=== PATIENT | male | born 1960 | race American Indian/Alaskan Native ===

== ENCOUNTER 2020-12-13 06:25 | Observation (INO) | payer OTHER ==
[2020-12-09 11:04] LABS: Hematocrit 48.2 % (35.5-45.6); Hemoglobin 16.7 gm/dl (11.8-15.2); Mean Corpuscular HGB Conc 35 % (32-34); Mean Corpuscular Volume 93 fl (84-94); Platelet Count 209 K/mm3 (140-440); Red Blood Count 5.16 M/mm3 (3.65-5.03); Red Cell Distribution Width 13.3 % (13.2-15.2)
--- NOTE | 2020-12-09 11:15 | Anesthesia Consultation ---
Anesthesia Consult and Med Hx Date of service: 12/13/20 - Airway Anesthetic Teeth Evaluation: Good (Missing) ROM Head & Neck: Adequate (Small mouth opening) Mental/Hyoid Distance: Adequate Mallampati Class: Class III Intubation Access Assessment: Probably Good - Pre-Operative Health Status ASA Pre-Surgery Classification: ASA2 Proposed Anesthetic Plan: General - Pulmonary Hx Smoking: Yes (1-2 CIG./DAY) Hx Asthma: No Hx Respiratory Symptoms: No (+2FS) COPD: No Hx Pneumonia: No Hx Sleep Apnea: No (LUIS PRE SCREEN LOW RISK) - Cardiovascular System Hx Hypertension: No Hx Heart Attack/AMI: No Hx Pacemaker: No Hx Internal Defibrillator: No Hx Heart Murmur: No - Central Nervous System Hx Seizures: No Hx Back Pain: No Hx Psychiatric Problems: No - Gastrointestinal Hx Gastroesophageal Reflux Disease: Yes - Endocrine Hx End Stage Renal Disease: No Hx Cirrhosis: No Hx Liver Disease: No - Hematic Hx Anemia: No Hx Sickle Cell Disease: No - Other Systems Hx Alcohol Use: Yes (OCC. BEER) Hx Substance Use: No Hx Cancer: Yes
[2020-12-09 11:27] LABS: Alanine Aminotransferase 19 units/L (7-56); Albumin 4.3 g/dL (3.9-5); BUN/Creatinine Ratio 13; Blood Urea Nitrogen 14 mg/dL (9-20); Calcium 9.1 mg/dL (8.4-10.2); Hemolysis Index 20
[~2020-12-13 06:25] MED LIST: ACETAMINOPHEN 500 MG TAB PO NR; BACTERIOSTATIC SODIUM CHLORIDE 0.9% 30 ML VIAL INFILTRATI ONE; CELECOXIB 200 MG CAP PO NR; GABAPENTIN 300 MG CAP PO NR; LACTATED RINGERS 1,000 ML IV SCH; MAGNESIUM OXIDE 400 MG TAB PO NR; MIDAZOLAM 2 MG/2 ML INJ IV NR
[2020-12-13] MEDS ORDERED: CITRIC ACID-SOD CITRATE 500 ML IV ONE (06:57)
[2020-12-13] MEDS ORDERED: THROMBIN (RECOMBINANT) 5,000 UNIT VIAL TP ONE ×2 (06:57→10:35)
[2020-12-13] MEDS ORDERED: BUPIVACAINE-EPINEPHRINE/PF 0.5%-1:200,000 (30 ML) VIAL INFILTRATI ONE ×2 (06:57→08:33)
[2020-12-13] MEDS ORDERED: ceFAZolin/STERILE WATER 2 GM/20 ML SYRINGE IV NR (07:00)
[2020-12-13] MEDS ORDERED: LIDOCAINE PF 100 MG/5 ML (CARDIAC SYRINGE) IV ONE (07:13)
[2020-12-13] MEDS ORDERED: ROCURONIUM 50 MG/5 ML INJ IV ONE ×2 (07:13→09:52)
[2020-12-13] MEDS ORDERED: fentaNYL 100 MCG/2 ML INJ ONE (07:13)
[2020-12-13] MEDS ORDERED: propofoL 200 MG/20 ML VIAL IV ONE (07:14)
--- NOTE | 2020-12-13 07:17 | Anesthesia Day of Surgery ---
Anesthesia Day of Surgery - Day of Surgery Patient Examined: Yes Patient H&P Reviewed: Yes Patient is NPO: Yes
[2020-12-13] MEDS ORDERED: METHYLENE BLUE 50 MG/10 ML AMP ONE (07:18)
[2020-12-13] MEDS ORDERED: ONDANSETRON 4 MG/2 ML INJ IV PRN ×2 (07:25→11:00)
[2020-12-13] MEDS ORDERED: HYDROmorphone 1 MG/1 ML INJ IV PRN (07:25)
[2020-12-13] MEDS ORDERED: CALCIUM CHLORIDE 1,000 MG/10 ML SYRINGE IV ONE ×2 (08:03→10:35)
[2020-12-13] MEDS ORDERED: SODIUM CHLORIDE 0.9% IRRIG SOLN 2000 ML IR ONE (08:34)
[2020-12-13] MEDS ORDERED: SODIUM CHLORIDE 0.9% IRR 1,500 ML BOTTLE IR ONE (08:34)
[2020-12-13] MEDS ORDERED: ePHEDrine SULFATE 50 MG/1 ML INJ ONE (08:59)
[2020-12-13] MEDS ORDERED: GLYCOPYRROLATE 0.4 MG/2 ML INJ ONE ×2 (08:59→10:11)
[2020-12-13] MEDS ORDERED: dexAMETHasone 20 MG/5 ML VIAL ONE (08:59)
[2020-12-13] MEDS ORDERED: METHYLENE BLUE 50 MG/10 ML AMP IV ONE (09:05)
[2020-12-13] MEDS ORDERED: HYDROmorphone 1 MG/1 ML INJ ONE (09:18)
[2020-12-13] MEDS ORDERED: ONDANSETRON 4 MG/2 ML INJ ONE (10:11)
[2020-12-13] MEDS ORDERED: NEOSTIGMINE 10MG/10 ML INJ MDV ONE (10:11)
--- NOTE | 2020-12-13 10:30 | Short Stay Summary ---
Short Stay Documentation Date of service: 12/13/20 - History H&P: obtained from office - Allergies and Medications Current Medications: Allergies No Known Allergies Allergy (Verified 12/07/20 15:11) Home Medications Medication Instructions Recorded Confirmed Last Taken Type Complete Multi Tablet 1 cap PO DAILY 12/06/20 12/13/20 12/11/20 History Active Medications Acetaminophen (Acetaminophen 500 Mg Tab) 1,000 mg PO ONCE NR Stop: 12/13/20 23:00 Last Admin: 12/13/20 06:37 Dose: 1,000 mg Documented by: Cefazolin Sodium (Cefazolin/Sterile Water 2 Gm/20 Ml Syringe) 2 gm IV PREOP NR Stop: 12/13/20 23:59 Celecoxib (Celecoxib 200 Mg Cap) 400 mg PO PREOP NR Stop: 12/13/20 22:00 Last Admin: 12/13/20 06:37 Dose: 400 mg Documented by: Gabapentin (Gabapentin 300 Mg Cap) 300 mg PO PREOP NR Stop: 12/13/20 22:00 Last Admin: 12/13/20 06:37 Dose: 300 mg Documented by: Hydromorphone HCl (Hydromorphone 1 Mg/1 Ml Inj) 0.5 mg IV Q10MIN PRN PRN Reason: Pain , Severe (7-10) Stop: 12/13/20 23:00 Lactated Ringer's (Lactated Ringers) 1,000 mls @ 125 mls/hr IV DIRECT YANCY Last Admin: 12/13/20 06:50 Dose: 125 mls/hr Documented by: Magnesium Oxide (Magnesium Oxide 400 Mg Tab) 400 mg PO ONCE NR Stop: 12/13/20 22:00 Last Admin: 12/13/20 06:37 Dose: 400 mg Documented by: Midazolam HCl (Midazolam 2 Mg/2 Ml Inj) 2 mg IV PREOP NR Stop: 12/13/20 23:59 Last Admin: 12/13/20 06:52 Dose: 2 mg Documented by: Ondansetron HCl (Ondansetron 4 Mg/2 Ml Inj) 4 mg IV ONCE PRN PRN Reason: Nausea And Vomiting Stop: 12/13/20 23:00 - Brief post op/procedure progress note Date of procedure: 12/13/20 Pre-op diagnosis: prostate ca Post-op diagnosis: same Procedure: robotic prostatectomy Anesthesia: GETA Surgeon: STEPHANIE ZAFAR Estimated blood loss: other (400cc) Pathology: list (prostate) Specimen disposition: to lab Condition: stable - Hospital course Hospital course: pt has scripts post op info on chart dc dinesh done william--blue urine fro methylene blure intra op home with william - Disposition Condition at discharge: Stable Short Stay Discharge Plan Follow up with: [facility] [Primary Care Provider] - 7 Days
[2020-12-13] MEDS ORDERED: NALOXONE 0.4 MG/1 ML INJ IV PRN (10:32)
[2020-12-13] MEDS ORDERED: HYDROcodone/ACETAMINOPHEN 5-325 MG TAB PO PRN (10:32)
[2020-12-13] MEDS ORDERED: CITRIC ACID-SOD CITRATE SOLN 500 ML IV SOLN IV ONE (10:34)
--- NOTE | 2020-12-13 11:07 | Operative Report ---
PREOPERATIVE DIAGNOSIS: Prostate cancer, [place] 4+3. POSTOPERATIVE DIAGNOSIS: Prostate cancer, [place] 4+3. PROCEDURES PERFORMED: Robotic-assisted laparoscopic prostatectomy, bladder neck suspension. SURGEON: Javier Figueredo MD ANESTHESIA: General. FILLER SHREDDING MACHINE LOADER: Ирина Reyes. ESTIMATED BLOOD LOSS: 400 mL. FLUIDS: Crystalloid 250 mL, Cell Saver. DRAINS: Aleks-Zimmer drain x 1. COMPLICATIONS: No complications. INDICATIONS: This 60-year-old gentleman was referred by the [facility] for treatment for prostate cancer. He had a [place] 3+7 to a 13 cores, PSA of 29. CT bone scan negative. He was referred by Dr. Rivera, discussed options. The patient agreed to proceed with surgical intervention. Risks, benefits, and complications were explained. DESCRIPTION OF PROCEDURE: The patient was taken to the operative suite, placed in a supine position. After adequate general anesthesia, placed in a modified dorsal lithotomy position, prepped and draped in a sterile fashion. Vidales catheter was placed on the operative field. 1 cm supraumbilical incision was made with the Bovie. Towel clips were placed and anterior traction applied. Veress needle was inserted without difficulty. Drop test negative. Opening pressure 3 cm of water. Insufflation of the abdomen to 15 cm of water was performed without difficulty. A 15 cm cephalad at the pubic symphysis was marked 9 cm lateral and additional 9 cm lateral was marked for the 8 mm robotic ports on the left. A robotic port on the right helper port, a 10 mm helper port on the right and a 5 mm helper port was placed. After the 0-degree lens was used to place in the midline incision. The rest of the ports were placed under direct vision. No signs of metastasis. No intra-abdominal injury could be appreciated. The patient was placed in an exaggerated Trendelenburg position. Attention was taken to the posterior aspect of the prostate lateral arch, the second arch was scored exposing the seminal vesicles and vas deferens. This was dissected out and then dissection to the apex of the prostate could be appreciated. Next, attention was taken to the anterior abdominal wall, which was scored lateral to the lateral umbilical ligament and then across the midline to allow bladder flap. The dorsal vein complex was dissected out and controlled with a 60 mm vascular stapler. The endopelvic fascia was opened bilaterally. Manipulation of the Vidales was able to identify the bladder neck, which was scored anteriorly. Vidales catheter was deflated, pulled out and anterior traction was applied. Posterior bladder neck was dissected free and methylene blue was administered intravenously to help identify the ureteral orifices bilaterally. Seminal vesicles and vas deferens was pulled up anteriorly. Lateral pedicles were exposed and controlled with a 60 mm vascular stapler bilaterally. Dissection to the posterior aspect of the prostate was performed and it was put in the EndoCatch bag. Copious irrigation was performed. Adequate hemostasis achieved. The rectum was uninjured. Bladder neck was reconstructed to allow insertion of 18-Georgian Vidales catheter. Reconstruction at the 7 o'clock and 5 o'clock positions using 2-0 Vicryl in an interrupted fashion. Double armed V-Loc was placed at the 6 o'clock position of the bladder neck and corresponding aspect of the urethra, running stitch bilaterally was placed followed by a new 18-Georgian Vidales catheter. It was inflated, irrigated, the anastomotic stitch was cinched down. No clot, no leak. Bladder neck suspension was performed using the V-Loc stitch which was placed in the pubic rami bilaterally. Jackson were removed bilaterally. Platelet-rich plasma was injected at the anastomosis as well as platelet poor plasma and a platelet membrane. Aleks-Zimmer drain was brought out through a separate incision on the left side using the 8 mm port tied and secured into the skin with 2-0 silk in an interrupted fashion. The patient was placed in the supine position. The robotic cart was undocked. The ports were removed without difficulty. The supraumbilical incision was extended slightly to allow removal of the prostate. This incision was then closed with #1 Vicryl in a [id number] fashion. The skin was closed with 3-0 Vicryl in an interrupted fashion. Vidales catheter sideport was folded over and tied with 0 silk in an interrupted fashion. The patient tolerated the procedure well. He was extubated and taken to recovery room. He will be observed overnight. Ирина Reyes was present at the bedside to assist with surgical dissection. JOB# [id number] [facility]
[2020-12-13] MEDS: SODIUM CHLORIDE 0.9% 1000 ML 1,000 ML IV SCH ×2 (12:00→20:24)
--- NOTE | 2020-12-13 13:35 | Post Anesthesia Evaluation ---
- Post Anesthesia Evaluation Patient Participated: Yes Airway Patent: Yes Stable Respiratory Function: Yes Nausea/Vomiting: No Temp > 96.8F: Yes Pain Manageable: Yes Adequeate Hydration: Yes Anesthesia Complications: No
[2020-12-13] MEDS: ceFAZolin/NS 1 GM/50 ML 1 GM/50 ML BAG IV SCH (17:17)
[2020-12-13] MEDS: MORPHINE 4 MG/1 ML INJ IV PRN (20:15)
[2020-12-13] MEDS ORDERED: ZOLPIDEM 5 MG TAB PO PRN (22:00)
[2020-12-14] MEDS: ceFAZolin/NS 1 GM/50 ML 1 GM/50 ML BAG IV SCH (02:37)
[2020-12-14] MEDS: MORPHINE 4 MG/1 ML INJ IV PRN ×2 (02:38→06:53)
[2020-12-14 04:48] LABS: Basophils % (Auto) 0.2 % (0.0-1.8); Hematocrit 44.2 % (35.5-45.6); Hemoglobin 14.8 gm/dl (11.8-15.2); Lymphocytes # (Auto) 0.6 K/mm3 (1.2-5.4); Lymphocytes % (Auto) 6.2 % (13.4-35.0); Mean Corpuscular HGB Conc 33 % (32-34); Mean Corpuscular Volume 95 fl (84-94); Monocytes % (Auto) 10.2 % (0.0-7.3); Platelet Count 187 K/mm3 (140-440); Red Blood Count 4.66 M/mm3 (3.65-5.03); Red Cell Distribution Width 13.6 % (13.2-15.2)
[2020-12-14 05:07] LABS: Calcium 8.4 mg/dL (8.4-10.2)
[2020-12-14] MEDS: SODIUM CHLORIDE 0.9% 1000 ML 1,000 ML IV SCH (05:35)
[2020-12-14 08:40] VITALS: BP 148/90
== END 2020-12-14 13:07 | disposition home or self-care (01) ==
LOC: OR 06:25 → 3B-SURG 10:32
PROVIDERS: ADMIT Urology; ATTEND Urology
DX: C61 Malignant neoplasm of prostate (principal); Z20.828 Contact with and (suspected) exposure to other viral communicable diseases; I10 Essential (primary) hypertension; Z71.3 Dietary counseling and surveillance; Z68.27 Body mass index [BMI] 27.0-27.9, adult
CPT/HCPCS: 36415; 55866; 80048; 80053; 85025; 85027; 86850; 86900; 86901; 88309; 96361; 96365; 96366; 96375; 96376; A4217; G0378; J0690; J1100; J1170; J2001; J2250; J2270; J2405; J2704; J2710; J3010; J7030; J7120; Q9968; S2900; U0003

== ENCOUNTER 2020-12-16 11:06 | Emergency (ER) | payer OTHER ==
--- NOTE | 2020-12-16 11:19 | Emergency Department Report ---
ED Male HPI - General Chief complaint: Urogenital-Male Stated complaint: CATH LEAKING Source: patient Mode of arrival: Ambulatory Limitations: No Limitations - History of Present Illness Initial comments: This 60-year-old male presents emerged department chief complaint of urine leaking around his Vidales catheter. Patient had a robot-assisted radical prostatectomy earlier this week and has an indwelling catheter. His urologist is Dr. Figueredo. He denies any abdominal pain, back pain, fever, chills, night sweats, headache, dizziness, blurry vision, nausea, vomiting, diarrhea, chest pain, shortness of breath or any other associated symptoms. - Related Data Home Medications Medication Instructions Recorded Confirmed Last Taken Complete Multi Tablet 1 cap PO DAILY 12/06/20 12/13/20 12/11/20 Allergies Allergy/AdvReac Type Severity Reaction Status Date / Time No Known Allergies Allergy Verified 12/07/20 15:11 ED Review of Systems ROS: Stated complaint: CATH LEAKING Other details as noted in HPI Comment: All other systems reviewed and negative Constitutional: denies: chills, fever Eyes: denies: eye pain, eye discharge, vision change ENT: denies: ear pain, throat pain Respiratory: denies: cough, shortness of breath, wheezing Cardiovascular: denies: chest pain, palpitations Endocrine: no symptoms reported Gastrointestinal: denies: abdominal pain, nausea, diarrhea Genitourinary: denies: urgency, dysuria Musculoskeletal: denies: back pain, joint swelling, arthralgia Skin: denies: rash, lesions Neurological: denies: headache, weakness, paresthesias Psychiatric: denies: anxiety, depression Hematological/Lymphatic: denies: easy bleeding, easy bruising ED Past Medical Hx - Past Medical History Hx Hypertension: No Hx Heart Attack/AMI: No Hx Congestive Heart Failure: No Hx Diabetes: No Hx GERD: Yes Hx Liver Disease: No Hx Sickle Cell Disease: No Hx Arthritis: No Hx Headaches / Migraines: No Hx Seizures: No Hx Kidney Stones: No Hx Asthma: No Hx COPD: No Hx Tuberculosis: No Hx HIV: No - Surgical History Hx Coronary Stent: No Hx Pacemaker: No Hx Internal Defibrillator: No Additional Surgical History: Prostate procedure - Social History Smoking Status: Former Smoker Substance Use Type: None - Medications Home Medications: Home Medications Medication Instructions Recorded Confirmed Last Taken Type Complete Multi Tablet 1 cap PO DAILY 0112/13/20 12/11/20 History ED Physical Exam - General Limitations: No Limitations General appearance: alert, in no apparent distress - Head Head exam: Present: atraumatic, normocephalic - Eye Eye exam: Present: normal appearance, PERRL, EOMI Pupils: Present: normal accommodation - ENT ENT exam: Present: normal exam, normal orophraynx, mucous membranes moist - Neck Neck exam: Present: normal inspection, full ROM. Absent: tenderness, meningismus - Respiratory Respiratory exam: Present: normal lung sounds bilaterally. Absent: respiratory distress, wheezes, rales, rhonchi, stridor, chest wall tenderness - Cardiovascular Cardiovascular Exam: Present: regular rate, normal rhythm, normal heart sounds. Absent: systolic murmur, diastolic murmur, rubs, gallop - GI/Abdominal GI/Abdominal exam: Present: soft, normal bowel sounds, other (Incisions to the abdomen are clean dry and intact.). Absent: distended, tenderness, guarding, rebound, rigid - Rectal Rectal exam: Present: deferred - exam: Present: normal inspection, other (Vidales catheter is in place. There is some sediment in the Vidales tubing.) - Extremities Exam Extremities exam: Present: normal inspection, full ROM, normal capillary refill. Absent: tenderness - Back Exam Back exam: Present: normal inspection - Neurological Exam Neurological exam: Present: alert, oriented X3 - Psychiatric Psychiatric exam: Present: normal affect, normal mood - Skin Skin exam: Present: warm, dry, intact, normal color. Absent: rash ED Course Vital Signs 12/16/20 11:13 Temperature 98.1 F Pulse Rate 87 Respiratory 20 Rate Blood Pressure 139/97 O2 Sat by Pulse 96 Oximetry - Reevaluation(s) Reevaluation #1: 12/16/20 12:15 There was some sediment in the Vidales tubing. I did disconnect the leg bag and flush the leg bag port and reattach the hose and the flow was restored. Patient's abdominal exam was benign and incisions on the abdomen are clean dry and intact. Recommended outpatient follow-up with the urologist and return to the ER with any change or worsening symptoms. Critical care attestation.: If time is entered above; I have spent that time in minutes in the direct care of this critically ill patient, excluding procedure time. ED Disposition Clinical Impression: Leakage from urinary catheter Qualifiers: Encounter type: initial encounter Qualified Code(s): T83.038A - Leakage of other urinary catheter, initial encounter Disposition: MED SCREENING EXAM-LEFT Is pt being admited?: No Condition: Stable Referrals: PRIMARY CARE, [Referring] - 3-5 Days STEPHANIE FIGUEREDO MD [Staff Physician] - 3-5 Days Time of Disposition: 12:16
[2020-12-16 11:24] VITALS: BP 139/97
== END 2020-12-16 11:29 | disposition left against medical advice (07) ==
LOC: ED 11:06
DX: T83.038A Leakage of other urinary catheter, initial encounter (principal); Z98.890 Other specified postprocedural states; Z79.899 Other long term (current) drug therapy; Z53.21 Procedure and treatment not carried out due to patient leaving prior to being seen by health care provider; Y92.89 Other specified places as the place of occurrence of the external cause

== ENCOUNTER 2022-02-28 13:21 | Emergency (ER) | payer OTHER ==
[2022-02-28 13:44] VITALS: BP 127/80
== END 2022-03-01 00:30 | disposition left against medical advice (07) ==
LOC: ED 13:21
DX: Z46.6 Encounter for fitting and adjustment of urinary device (principal); Z53.21 Procedure and treatment not carried out due to patient leaving prior to being seen by health care provider

== ENCOUNTER 2022-03-10 09:30 | Emergency (ER) | payer OTHER ==
--- NOTE | 2022-03-10 13:34 | Emergency Department Report ---
ED Male HPI - General Chief complaint: Urogenital-Male Stated complaint: LEAKY CATHER BAG Time Seen by Provider: 03/10/22 12:28 Source: patient Mode of arrival: Ambulatory Limitations: No Limitations - History of Present Illness Initial comments: 61-year-old black male presents to the emergency department for leaking catheter. He states that he was seen at a [facility] facility a few days ago and had a Vidales placed secondary to urinary retention. He states that he is scheduled to see urology in about 2 weeks but is Vidales bag is leaking. He state s that he went to his urologist office today and they gave him a new bed but were unable to put the bag on for him, so he came here to see if we can replace the VAC for him. He denies any symptoms. Complaint: other (Leaking Vidales bag) -: Gradual, days(s) (2-3) Severity scale (0 -10): 0 - Related Data Home Medications Medication Instructions Recorded Confirmed Last Taken Complete Multi Tablet 1 cap PO DAILY 12/06/20 12/13/20 12/11/20 Allergies Allergy/AdvReac Type Severity Reaction Status Date / Time No Known Allergies Allergy Verified 12/07/20 15:11 ED Review of Systems ROS: Stated complaint: LEAKY CATHER BAG Other details as noted in HPI Comment: All other systems reviewed and negative Constitutional: denies: chills, fever Respiratory: denies: shortness of breath, SOB with exertion Cardiovascular: denies: chest pain, palpitations Gastrointestinal: denies: abdominal pain, nausea, vomiting Genitourinary: denies: urgency, dysuria, frequency, hematuria, discharge Neurological: denies: headache, weakness ED Past Medical Hx - Past Medical History Hx Hypertension: No Hx Heart Attack/AMI: No Hx Congestive Heart Failure: No Hx Diabetes: No Hx GERD: Yes Hx Liver Disease: No Hx Sickle Cell Disease: No Hx Arthritis: No Hx Headaches / Migraines: No Hx Seizures: No Hx Kidney Stones: No Hx Asthma: No Hx COPD: No Hx Tuberculosis: No Hx HIV: No - Surgical History Hx Coronary Stent: No Hx Pacemaker: No Hx Internal Defibrillator: No Additional Surgical History: Prostate procedure - Social History Smoking Status: Former Smoker Substance Use Type: None - Medications Home Medications: Home Medications Medication Instructions Recorded Confirmed Last Taken Type Complete Multi Tablet 1 cap PO DAILY 12/06/20 12/13/20 12/11/20 History ED Physical Exam - General Limitations: No Limitations General appearance: alert, in no apparent distress - Head Head exam: Present: atraumatic, normocephalic - Eye Eye exam: Present: normal appearance. Absent: conjunctival injection - Neck Neck exam: Present: normal inspection - Respiratory Respiratory exam: Absent: respiratory distress - Cardiovascular Cardiovascular Exam: Present: regular rate - GI/Abdominal GI/Abdominal exam: Absent: distended - Expanded Exam Expanded Male exam: Absent: other (Vidales catheter intact draining into bag bag noted to be leaking at the bottom.) - Extremities Exam Extremities exam: Present: normal inspection - Back Exam Back exam: Present: normal inspection - Neurological Exam Neurological exam: Present: alert, oriented X3 - Psychiatric Psychiatric exam: Present: normal affect, normal mood - Skin Skin exam: Present: warm, dry, intact, normal color ED Course Vital Signs 03/10/22 03/10/22 10:36 13:53 Temperature 97.5 F L 98.2 F Pulse Rate 64 76 Respiratory 16 18 Rate Blood Pressure 171/103 131/82 [Left] O2 Sat by Pulse 99 99 Oximetry - Procedure Description Procedures done: Vidales catheter bag replaced. StatLock to hold Vidales on leg was also replaced. Patient tolerated well. Drainage noted to be coming from catheter and no leakage through the bag. ED Medical Decision Making - Medical Decision Making 61-year-old black male presents to the emergency department for leaking catheter. He states that he was seen at a [facility] facility a few days ago and had a Vidales placed secondary to urinary retention. He states that he is scheduled to see urology in about 2 weeks but is Vidales bag is leaking. He states that he went to his urologist office today and they gave him a new bed but were unable to put the bag on for him, so he came here to see if we can replace the bag for him. He denies any symptoms. Vidales catheter bag replaced. Patient tolerated well. No further testing required. Patient states that he is currently on the last few days of antibiotics that he received from his urologist for urinary tract infection. He is advised to continue antibiotics as prescribed and follow-up with urology as planned. He verbalizes understanding of and agreement with plan of care. Critical care attestation.: If time is entered above; I have spent that time in minutes in the direct care of this critically ill patient, excluding procedure time. ED Disposition Clinical Impression: Leakage from urinary catheter Qualifiers: Encounter type: initial encounter Qualified Code(s): T83.038A - Leakage of other urinary catheter, initial encounter Disposition: HOME / SELF CARE / HOMELESS Is pt being admited?: No Does the pt Need Aspirin: No Condition: Stable Instructions: Indwelling Urinary Catheter Care, Adult, [id number], Indwelling Urinary Catheter Insertion, Care After Additional Instructions: Follow-up with urology as planned. Return to the emergency department as needed. Referrals: [facility] [Primary Care Provider] - 3-5 Days Time of Disposition: 13:34
[2022-03-10 13:56] VITALS: BP 131/82
== END 2022-03-10 13:57 | disposition home or self-care (01) ==
LOC: ED 09:30
DX: T83.038A Leakage of other urinary catheter, initial encounter (principal); Z87.891 Personal history of nicotine dependence
CPT/HCPCS: 51702; 99282